=== PATIENT | female | born 1960 | race Caucasian/White ===

== ENCOUNTER 2017-08-06 05:49 | Day surgery (SDC) | payer OTHER ==
[~2017-08-06] VITALS: Ht 165.1 cm; Wt 71.1 kg
[2017-08-06 06:28] VITALS: Ht 165.1 cm; Wt 71.1 kg
[2017-08-06 07:25] VITALS: BP 125/58; PULSE 56; RESP 32
--- NOTE | 2017-08-06 07:45 | OPPN ---
Date/Time of Note Date/Time of Note DATE: 08/06/17 TIME: 07:44 Operative Report Preoperative Diagnosis Abdominal pain Chronic heartburn Postoperative Diagnosis Gastroesophageal reflux disease Gastritis Operation/Procedure Performed Esophagogastroduodenoscopy and biopsy Surgeon see signature line news assistant None Anesthesia: moderate sedation Estimated blood loss: none Transfusion Required none Specimen Gastric mucosal biopsy Grafts/Implants none Complications none IFTIKHAR YANG MD Aug 06, 2017 07:45
[2017-08-06] MEDS ORDERED: MIDAZOLAM 1 MG/ML 2 ML INJ ONE (07:51)
[2017-08-06] MEDS ORDERED: FENTAnyl 50 MCG/ML VIAL ONE (07:51)
[2017-08-06 08:07] VITALS: BP 106/56; RESP 14
--- NOTE | 2017-08-06 08:32 | GILP ---
DATE OF PROCEDURE: NAME OF PROCEDURES: Esophagogastroduodenoscopy and biopsy. SURGEON: Iftikhar Moya MD PREOPERATIVE DIAGNOSES: 1. Abdominal pain. 2. Chronic heartburn. POSTOPERATIVE DIAGNOSES: 1. Gastroesophageal reflux disease. 2. Gastritis with erosions. 3. Small gastric polyps. 4. Gastric mucosal biopsies were taken for Helicobacter pylori test. INDICATION FOR THE PROCEDURE: Ms. Nina Hernandez is a 57-year-old female patient who had upper abdom inal pain and chronic heartburn, not responding to therapy. The patient was scheduled for endoscopi c examination for further evaluation. The procedure and possible complications are well explained to the patient. The patient understood and consented to the procedure. DESCRIPTION OF PROCEDURE: Under the influence of fentanyl and Versed, the gastroscope was carefully introduced into the esophagus and under direct vision it was advanced to the stomach and through th e pylorus into the duodenal bulb and descending duodenum. FINDINGS: ESOPHAGUS: The patient had gastroesophageal reflux disease. STOMACH: She had gastritis with erosions. Gastric mucosal biopsies were taken for H. pylori test. DUODENUM: Normal. The patient tolerated the procedure very well and there was no complication from the procedure. At the end of the procedures, she was awake with stable vital signs and she was discharged home to the care of her family. IMPRESSION: 1. Gastroesophageal reflux disease. 2. Gastritis with erosions. 3. Gastric mucosal biopsies were taken for Helicobacter pylori test. 4. Small gastric polyps. PLAN: 1. Zantac 300 mg p.o. b.i.d. 2. Await H. pylori test report. Dictated By: IFTIKHAR ESQUEDA/JEREMIE Conf#: [id number] DID#: [id number]
--- NOTE | 2017-08-07 07:42 | CONS ---
DATE OF ADMISSION: 08/06/2017 DATE OF CONSULTATION: PREOPERATIVE GASTROENTEROLOGY CONSULTATION NOTE Dear Dr. Grover: I thank you very much for this kind referral. HISTORY OF PRESENT ILLNESS: Ms. Ila Hernandez is a 57-year-old female patient who has been referred to me for further evaluation of upper abdominal pain and chronic heartburn, not responding to therap y. There is no past history of peptic ulcer disease. The patient could not take omeprazole because of the side effects. She is not taking any nonsteroidal anti-inflammatory agents. Her appetite smith s been good, and there is no history of significant weight loss. She is status post cholecystectomy . No history of liver disease. The patient also complains of change in the bowel habit with altern ating constipation and diarrhea. She needs screening colonoscopy. She is not a hypertensive or audra betic. No heart disease or lung problems, or kidney disease. Has history of fibromyalgia. Nonsmok er. No alcohol abuse. No family history of gastrointestinal tract neoplasm. ALLERGIES: SHE STATES SHE IS ALLERGIC TO ASPIRIN AND POSSIBLY GLUTEN. MEDICATIONS: None. PHYSICAL EXAMINATION: GENERAL: She is 5 feet 5 inches tall and she weighs 160 pounds. HEART: Normal heart sounds. LUNGS: Clear. ABDOMEN: Soft. No masses. Normal bowel sounds. NEUROLOGIC: Normal neurological exam. IMPRESSION: 1. Upper abdominal pain and bloating. 2. Chronic heartburn. 3. The patient cannot take omeprazole because of the side effects. 4. Change in the bowel habit with alternating constipation and diarrhea. 5. The patient needs screening colonoscopy. 6. Fibromyalgia. 7. Status post cholecystectomy. 8. HISTORY OF ALLERGY TO ASPIRIN AND POSSIBLY GLUTEN. PLAN: 1. Endoscopic examination for further evaluation. 2. During upper endoscopy, small bowel biopsies will be taken to rule out celiac disease. 3. Abdominal ultrasound for further evaluation of abdominal pain. 4. Screening colonoscopy at a later date. The procedures and possible complications are well explained to the patient. She understands and co nsents to the procedures. I thank you once again. With warmest personal regards, Dictated By: IFTIKHAR YANG MD GD/JEREMIE Conf#: [id number] DID#: [id number] CC: ROBERT GROVER MD;*EndCC*
== END 2017-08-06 13:02 | disposition home or self-care (01) ==
LOC: GIL 05:49
PROVIDERS: ATTEND Internal Medicine Gastroenterology
DX: K21.9 Gastro-esophageal reflux disease without esophagitis (principal); K29.60 Other gastritis without bleeding; K31.7 Polyp of stomach and duodenum
CPT/HCPCS: 43239; 87081; J2250; J3010

== ENCOUNTER 2017-10-05 06:54 | Day surgery (SDC) | END 2017-10-05 14:46 | disposition home or self-care (01) ==